=== PATIENT | female | born 1975 | race Caucasian/White ===

== ENCOUNTER → 2020-04-14 09:36 | Outpatient (CLI) | payer BC, SELFPAY ==
--- NOTE | ~2020-04-14 | CT_ITS ---
EXAMINATION: CT abdomen pelvis w con DATE: 04/14/2020 10:13 INDICATION: Abdominal pain TECHNIQUE: Computed tomography (CT) of the abdomen and pelvis was performed with 100 mL Omnipaque-350 intravenous contrast. Automated exposure control and iterative reconstruction technique were employe d. The dose-length product was 959.32 mGy-cm. COMPARISON: None FINDINGS: Lung bases are clear. Heart size is normal. No pericardial or pleural effusion. Partially visualized bilateral breast implants. The liver, gallbladder, spleen and a small splenule, pancreas and bilatera l adrenal glands and kidneys are normal. Normal appendix. Large amount of colonic stool. No abnormal bowel wall thickening or obstruction. IUD in expected position within the normal anteverted uterus. B ladder and right adnexa are unremarkable. There is dilation of the left gonadal vein and left-sided p arametrial vessels which can be seen with pelvic vascular congestion syndrome which is a clinical gianfranco gnosis. No free intraperitoneal gas or fluid. No pathologically enlarged abdominal or pelvic lymphade nopathy. Small fat-containing right inguinal hernia. Severe bilateral facet osteoarthritis at L4-L5. IMPRESSION: 1. No acute intra-abdominal/pelvic process. 2. Dilation of the left sided gonadal veins and parametrial vessels which can be seen with pelvic vas cular congestion syndrome which is a clinical diagnosis. 3. IUD in expected position within the normal anteverted uterus. 4. Large amount of colonic stool. Correlate clinically for constipation. Reviewed, dictated and finalized at location B. IMPRESSION: 1. No acute intra-abdominal/pelvic process. 2. Dilation of the left sided gonadal veins and parametrial vessels which can b e seen with pelvic vascular congestion syndrome which is a clinical diagnosis. 3. IUD in expected position within the normal anteverted uterus. 4. Large amount of colonic stool. Correlate clinically for constipation.
== END ==
DX: R10.9 Unspecified abdominal pain (principal)
CPT/HCPCS: 74177; Q9967

== ENCOUNTER 2025-06-17 11:07 | Outpatient (CLI) | payer OTHER, SELFPAY | END 2025-06-17 11:08 | disposition home or self-care (01) | PROVIDERS: PCP Family Medicine; Visit Provider Otolaryngology | DX: H69.90 Unspecified Eustachian tube disorder, unspecified ear (principal) | CPT/HCPCS: 92557; 92567 ==